=== PATIENT | male | born 1995 | race African-American/Black ===

== ENCOUNTER 2024-05-18 20:22 | Emergency (ER) | payer OTHER | END 2024-05-18 20:58 | disposition home or self-care (01) | LOC: VM.ED 20:22 → MERGE 20:22 → VM.ED 20:58 | DX: Z02.89 Encounter for other administrative examinations (principal) | CPT/HCPCS: 99283 ==

== ENCOUNTER 2024-05-18 21:54 | Emergency (ER) | payer SELFPAY ==
[2024-05-18] MEDS ORDERED: Sodium Chloride 0.9% 10 ML Syringe FLUSH PRN (21:59)
[2024-05-18] MEDS: Sodium Chloride 0.9% 1,000 ML IV ONE (22:10)
[2024-05-18 22:22] LABS: BASOPHILS PERCENT AUTO 0.3 % (0.2-1.2); EOSINOPHILS PERCENT AUTO 0.4 % (0.0-4.0); HEMATOCRIT 43.8 % (40.0-52.0); HEMOGLOBIN 15.3 g/dL (14.0-18.0); LYMPHOCYTES ABSOLUTE AUTO 2.9 x10^3/uL (1.0-4.8); LYMPHOCYTES PERCENT AUTO 41.9 % (25.0-50.0); MEAN CORPUSCULAR HEMOGLOBIN 33.3 pg (26.0-32.0); MEAN CORPUSCULAR HGB CONC 34.9 g/dL (32.0-36.0); MEAN CORPUSCULAR VOLUME 95.4 fL (78.0-93.0); MONOCYTES ABSOLUTE AUTO 0.6 x10^3/uL (0.0-0.8); MONOCYTES PERCENT AUTO 7.9 % (2.0-11.0); NEUTROPHILS ABSOLUTE AUTO 3.4 x10^3/uL (1.8-7.7); NEUTROPHILS PERCENT AUTO 49.5 % (50.0-80.0); PLATELET COUNT,PLT 330 x10^3/uL (130-400); RED BLOOD CELL COUNT 4.59 x10^6/uL (4.5-6.0); WHITE BLOOD CELL COUNT,WBC 6.9 x10^3/uL (4.0-10.0)
[2024-05-18] MEDS: chlordiazePOXIDE 25 MG Cap PO ONE (22:26)
[2024-05-18] MEDS: Ondansetron 4 MG/2 ML SDV IVPUSH ONE (22:26)
[2024-05-18 22:41] LABS: A/G RATIO 0.87; ALANINE AMINOTRANSFERASE,ALT 38 U/L (16-63); ALKALINE PHOSPHATASE 94 U/L (46-116); ASPARTATE AMNIOTRANSFERASE,AST 39 U/L (15-37); BILIRUBIN TOTAL 0.6 mg/dL (0.2-1.0); BLOOD UREA NITROGEN,BUN 16 mg/dL (7-18); CALCIUM 8.8 mg/dL (8.5-10.1); CARBON DIOXIDE,CO2 31 mmol/L (21-32); CHLORIDE,CL 104 mmol/L (98-107); CREATININE 1.2 mg/dL (0.70-1.30); GLUCOSE RANDOM 90 mg/dL (70-99); POTASSIUM,K 4.1 mmol/L (3.5-5.1); PROTEIN TOTAL,TP 8.6 g/dL (6.4-8.2); SODIUM,NA 145 mmol/L (136-145)
[2024-05-18 22:42] LABS: ANION GAP 14.1 mmol/L (5-15); ESTIMATED GFR 84 mL/min (>=60)
[2024-05-18 22:45] LABS: ETHANOL BLOOD MEDICAL 331 mg/dL (0-3)
== END 2024-05-18 23:10 ==
LOC: MERGE 21:54 → VM.ED 21:54
DX: M94.0 Chondrocostal junction syndrome [Tietze] (principal)
CPT/HCPCS: 36415; 71045; 80053; 80307; 84484; 85025; 93005; 93010; 96361; 96374; 99284; 99285-25; A9270-GY; J2405; J7030